=== PATIENT | male | born 1950 ===

== ENCOUNTER 2016-10-19 20:15 | Observation (INO) | payer SELFPAY ==
[2016-10-19] MEDS ORDERED: Bacitracin 500 Units/gm Oint Foilpak UD ONE (20:49)
--- NOTE | 2016-10-19 20:50 | C.PDOC ---
History Of Present Illness A 66 year old male presents is brought into the ED by EMS status post a mechanical fall. Patient reports that he was drinking ETOH when he tripped and fall, landing on his face. Patient notes pain and swelling to the left side of his face, just above the left eye. Patient denies any LOC, headaches, dizziness , vision changes, numbness, weakness, any sensory changes, neck pain, vomiting, or any other complaints. - HPI Time Seen by Provider: 10/19/16 20:41 Chief Complaint (Nursing): Trauma History Per: Patient Onset/Duration Of Symptoms: Hrs Injury Occurred (Timing): Just Before Arrival Location Of Injury: Right: Head Severity: Mild Recent travel outside of the [place]: No Past Medical History Reviewed: Historical Data, Nursing Documentation, Vital Signs Vital Signs: Last Vital Signs Temp 97.3 F L 10/19/16 20:19 Pulse 72 10/19/16 20:19 Resp 16 10/19/16 20:19 BP 152/99 H 10/19/16 20:19 Pulse Ox 99 10/19/16 21:49 Family History: States: Unknown Family Hx - Social History Hx Alcohol Use: Yes Hx Substance Use: No - Immunization History Hx Tetanus Toxoid Vaccination: No Hx Influenza Vaccination: No Hx Pneumococcal Vaccination: No Review Of Systems Except As Marked, All Systems Reviewed And Found Negative. Eyes: Negative for: Vision Change Gastrointestinal: Negative for: Vomiting Musculoskeletal: Positive for: Other (Pain and swelling on left upper face, just above the left eye.). Negative for: Neck Pain Neurological: Negative for: Weakness, Numbness, Altered Mental Status, Headache , Dizziness Physical Exam - Physical Exam Appears: Non-toxic, Other (ETOH on breath) Skin: Normal Color, Warm, Dry Head: Other (Hematoma on left upper face, above the eyeball.) Eye(s): bilateral: PERRL, EOMI, Other (Normal movment of eyes. Painless) Ear(s): Bilateral: Normal Nose: Normal, No Discharge, No Epistaxis, No Deformity, No Tenderness, No Septal Hematoma Oral Mucosa: Moist Tongue: Normal Appearing, No Swelling, No Erythema Lips: Normal Appearing, No Swelling, No Erythema Neck: Normal ROM, Supple Cardiovascular: Rhythm Regular Respiratory: Normal Breath Sounds, No Rales, No Rhonchi, No Wheezing Gastrointestinal/Abdominal: Soft, No Tenderness Extremity: Normal ROM, No Tenderness Neurological/Psych: Oriented x3, Normal Speech ED Course And Treatment O2 Sat by Pulse Oximetry: 99 - CT Scan/US Head CT Other Rad Studies (CT/US): Read By Radiologist, Radiology Report Reviewed CT/US Interpretation: Head CT Impression: 1. No intracranial hemorrhage. 2. Mild hydrocephalus vs central atrophy. Compare with prior examinations if available. 3. Nonspecific white matter changes. 4. Mastoid disease. 5. Incidental/non-acute findings are described above. Orbits CT Impression: 1. No fracture. 2. Incidental/non-acute findings are described above. Reevaluation Time: 21:48 Reassessment Condition: Improved (ice packs on face, pt calling for a ride home. ) Medical Decision Making Medical Decision Making: Plan: -- Head CT -- Orbits/Facial CT -- Bacitracin 2200: alcohol intox, fall to L face, no fx/disloc/brain injury, + hematoma above L eye. Pending ride home. Obs pending pickup. Disposition - Disposition Disposition Time: 01:00 Condition: GOOD - Clinical Impression Clinical Impression: Alcohol intoxication, Facial contusion - Scribe Statement The provider has reviewed the documentation as recorded by the Meganibbran Bautista Provider Scribe Attestation: All medical record entries made by the Scribe were at my direction and personally dictated by me. I have reviewed the chart and agree that the record accurately reflects my personal performance of the history, physical exam, medical decision making, and the department course for this patient. I have also personally directed, reviewed, and agree with the discharge instructions and disposition. Physician Patient Turnover Patient Signed Over To: Amanda Hutchins Handoff Comments: dispo in AM when sober
[2016-10-19] MEDS ORDERED: Bacitracin 500 Units/gm Oint Foilpak UD TOP ONE (20:56)
--- NOTE | 2016-10-19 21:29 | CT ---
EXAM: CT Head Without Intravenous Contrast CLINICAL HISTORY: 66 years old, male; Injury or trauma; Fall; Initial encounter; Abrasion; Eye and face; Left; Additional info: L frontal contusion, intox TECHNIQUE: Axial computed tomography images of the head/brain without intravenous contrast. This CT exam was performed using one or more of the following dose reduction techniques: automated exposure control, adjustment of the mA and/or kV according to patient size, and/or use of iterative reconstruction technique. COMPARISON: No relevant prior studies available. FINDINGS: Brain: Mild atrophy. No intracranial hemorrhage. No mass. Minimal decreased attenuation within periventricular white matter. No edema. Ventricles: Mildly dilated out of proportion to sulci. Bones/joints: No acute fracture. Soft tissues: LEFT periorbital soft tissue swelling. Vasculature: Mild atherosclerotic disease of intracranial arteries. Sinuses: No acute sinusitis. Mastoid air cells: Opacification of LEFT mastoid. Orbits: Unremarkable as visualized. IMPRESSION: 1. No intracranial hemorrhage. 2. Mild hydrocephalus vs central atrophy. Compare with prior examinations if available. 3. Nonspecific white matter changes. 4. Mastoid disease. 5. Incidental/non-acute findings are described above.
--- NOTE | 2016-10-19 21:39 | CT ---
EXAM: CT Orbits Without Intravenous Contrast CLINICAL HISTORY: 66 years old, male; Injury or trauma; Fall; Initial encounter; Abrasion; Forehead and orbit/periorbital; Left; Additional info: Hematoma on left eyebrow S/P fall TECHNIQUE: Axial computed tomography images of the orbits without intravenous contrast. This CT exam was performed using one or more of the following dose reduction techniques: automated exposure control, adjustment of the mA and/or kV according to patient size, and/or use of iterative reconstruction technique. Coronal and sagittal reformatted images were created and reviewed. COMPARISON: No relevant prior studies available. FINDINGS: Orbits: Unremarkable as visualized. Sinuses: No acute sinusitis. No air-fluid levels. Bones/joints: No acute fracture. Degenerative changes of cervical spine. Soft tissues: LEFT periorbital soft tissue swelling. Dental: Dental caries. IMPRESSION: 1. No fracture. 2. Incidental/non-acute findings are described above.
[2016-10-20 06:08] VITALS: BP 120/74; PULSE 64; RESP 20; TEMP 98.4; O2SAT 99
== END 2016-10-20 05:22 | disposition home or self-care (01) ==
LOC: C.ER 20:15 → INTOOBSV 21:47 → C.9OBSV 21:47
PROVIDERS: ADMIT Internal Medicine; ATTEND Internal Medicine
DX: F10.129 Alcohol abuse with intoxication, unspecified (principal); S00.83XA Contusion of other part of head, initial encounter; W01.0XXA Fall on same level from slipping, tripping and stumbling without subsequent striking against object, initial encounter
CPT/HCPCS: 70450; 70480; 99285; G0378